=== PATIENT | female | born 1950 | race Caucasian/White ===

== ENCOUNTER 2019-03-12 20:25 | Emergency (ER) | payer SELFPAY ==
[2019-03-12] MEDS: DIPHENHYDRAMINE 50 MG INJ IM (22:14)
[2019-03-12] MEDS: FAMOTIDINE 20 MG TAB PO (22:14)
[2019-03-12] MEDS: predniSONE 20 MG TAB PO (22:14)
== END 2019-03-12 22:35 | disposition home or self-care (01) ==
LOC: FTE 20:25
DX: R21 Rash and other nonspecific skin eruption (principal)
CPT/HCPCS: 96372; 99284-25